=== PATIENT | male | born 1950 | race Caucasian/White ===

== ENCOUNTER 2017-09-10 21:23 | Observation (INO) | payer MEDICARE, BC ==
[2017-09-10 21:43] LABS: #Eosinphils 0.2 thou/uL (0.0-0.7); #Lymphocytes 1.4 thou/uL (1.20-3.40); #Monocytes 0.5 thou/uL (0.11-0.59); #Neutrophils 2.6 thou/uL (1.40-6.50); %Eosinophils 4.6 % (0.0-10.0); %Monocytes 10.5 % (0.0-10.0); %Neutrophils 54.9 % (42.0-75.0); Hemoglobin 15.4 g/dL (14.0-18.0); Mean Corpuscular HGB CONC 34.9 g/dL (32.0-36.0); Mean Corpuscular Hemoglobin 31.1 pg (27.0-31.0); Mean Platelet Volume 7.9 fL (7.4-10.4); Platelet Count 188 thou/uL (130-400); RBC Distribution Width 11.7 % (11.5-14.5); Red Blood Cell (RBC) Count 4.96 mill/uL (4.70-6.10); White Blood Cell (WBC) Count 4.7 thou/uL (4.8-10.8)
[2017-09-10 22:03] LABS: ALT (SGPT) 21 U/L (8-55); AST (SGOT) 36 U/L (5-34); Albumin 4.1 g/dL (3.4-4.8); Alkaline Phosphatase 64 U/L (40-150); Anion Gap 17 mmol/L (10-20); BUN (Urea Nitrogen) 17 mg/dL (8.4-25.7); Bilirubin, Total 0.6 mg/dL (0.2-1.2); CK (CPK) 252 U/L (30-200); Calc. Creatinine Clearance 0 mL/min (70-130); Carbon Dioxide 21 mmol/L (23-31); Chloride 107 mmol/L (98-107); Estimated GFR-MDRD 57; Globulin 2.5 g/dL (2.4-3.5); Glucose 86 mg/dL (80-115); Potassium 4.2 mmol/L (3.5-5.1); Protein, Total 6.6 g/dL (5.8-8.1); Sodium 141 mmol/L (136-145)
--- NOTE | 2017-09-10 22:10 | CT ---
CT BRAIN WITHOUT CONTRAST: 09/10/17 HISTORY: Level II trauma, syncope, fall. Hit head on table. FINDINGS: No evidence of acute infarct, hemorrhage, midline shift, or abnormal extra-axial fluid collections ar e seen. The ventricular size is appropriate and the basilar cisterns patent. The bony calvarium is in tact. The visualized paranasal sinuses and mastoid air cells are well aerated. Incidental note is made of soft tissue air in the right infratemporal fossa. IMPRESSION: 1. No CT evidence of acute intracranial process. 2. Soft tissue air in the right infratemporal fossa. Discussed over the telephone with ER physician, Dr. José Arreaga at 9:59 p.m. POS: [facility]
--- NOTE | 2017-09-10 22:19 | RAD ---
PORTABLE CHEST ONE VIEW 09/10/17 at 10 p.m. HISTORY: Injury, chest pain. FINDINGS: The heart size is normal. No lobar consolidation, pneumothorax or pleural effusions are seen. IMPRESSION: No radiographic evidence of acute cardiopulmonary process. POS: [facility]
[2017-09-10 22:37] LABS: CKMB 2.7 ng/mL (0-6.6); Troponin I Less than 0.010 ng/mL (< 0.028)
[2017-09-11] MEDS ORDERED: Acetaminophen 325 MG TAB PO PRN (00:10)
[2017-09-11] MEDS ORDERED: Sodium Chloride 0.9% 1,000 ML IV SCH (00:30)
[2017-09-11 00:52] VITALS: BMI 24.7
[2017-09-11 02:02] LABS: Troponin I Less than 0.010 ng/mL (< 0.028)
[2017-09-11 04:04] LABS: #Eosinphils 0.1 thou/uL (0.0-0.7); #Lymphocytes 1.2 thou/uL (1.20-3.40); #Monocytes 0.5 thou/uL (0.11-0.59); #Neutrophils 3.8 thou/uL (1.40-6.50); %Basophils 0.5 % (0.0-1.0); %Eosinophils 2.5 % (0.0-10.0); %Lymphocytes 21.2 % (21.0-51.0); %Monocytes 9.6 % (0.0-10.0); %Neutrophils 66.2 % (42.0-75.0); Mean Corpuscular Hemoglobin 31.3 pg (27.0-31.0); Mean Corpuscular Volume 89.3 fl (80.0-94.0); Mean Platelet Volume 8.1 fL (7.4-10.4); Platelet Count 165 thou/uL (130-400); RBC Distribution Width 11.6 % (11.5-14.5); Red Blood Cell (RBC) Count 4.47 mill/uL (4.70-6.10); White Blood Cell (WBC) Count 5.7 thou/uL (4.8-10.8)
--- NOTE | 2017-09-11 04:06 | HP ---
CHIEF COMPLAINT: Syncope. PRIMARY CARE PHYSICIAN: Out of town PCP. HISTORY OF PRESENT ILLNESS: The patient is a very pleasant 67-year-old male who has a history of sei zure, who presented to the hospital after a syncopal episode today. The patient stated that he went for a dinner with his friends. After dinner, he was standing and talking with friends when he felt v jumana dizzy; however, denied any diaphoresis or any palpitations and then had a syncopal episode. Talisha ent's family who is at the bedside stated that patient was out for about 2 or 3 seconds and then sean me more awake. He was aware of his surroundings at that time. Patient states that this is not like his typical seizures that he has had in the past. The patient states that he has had a history of tw o seizures in the past from unknown etiology. However, at that time, he has had grand mal seizures w ith postictal states. However, this syncope was, according to the family, unlikely to be a seizure, because it was not typically how his seizures present. The patient had a CT in the ER, which indicat ed no acute intracranial process. Patient recently was started on Namenda a few days ago for some me al loss. PAST MEDICAL HISTORY: History of seizures x2. PAST SURGICAL HISTORY: Denies. FAMILY HISTORY: Denies any significant family history. MEDICATIONS: He takes Keppra, unknown dose daily; gabapentin daily; and omeprazole. ALLERGIES: No known drug allergies. REVIEW OF SYSTEMS: The following complete review of systems was negative, unless otherwise mentioned in the HPI or below: Constitutional: Weight loss or gain, ability to conduct usual activities. Sk in: Rash, itching. Eyes: Double vision, pain. ENT/Mouth: Nose bleeding, neck stiffness, pain, te nderness. Cardiovascular: Palpitations, dyspnea on exertion, orthopnea. Respiratory: Shortness of breath, wheezing, cough, hemoptysis, fever or night sweats. Gastrointestinal: Poor appetite, abdom inal pain, heartburn, nausea, vomiting, constipation, or diarrhea. Genitourinary: Urgency, frequenc y, dysuria, nocturia. Musculoskeletal: Pain, swelling. Neurologic/Psychiatric: Anxiety, depressio n. Allergy/Immunologic: Skin rash, bleeding tendency. LABORATORY AND DIAGNOSTIC RESULTS: WBCs of 4.7, hemoglobin of 15.4, hematocrit 44.2, platelets of 18 8,000. Chemistry: Sodium of 141, potassium of 4.2, BUN of 17, creatinine of 1.25. AST mildly eleva carrie at 36. CK at 252. Troponins x2 negative. TSH ordered which was 7.12. CT of head indicates no intracranial abnormalities; however, there is some soft tissue air in the right infratemporal fossa. Chest x-ray indicated no radiographic evidence of acute cardiopulmonary process. ASSESSMENT AND PLAN: The patient is a very pleasant 67-year-old male who initially presented to the hospital after a syncopal episode. 1. Syncope, could be possibly cardiac related versus orthostatic versus reflex syncope or neuromedia carrie/reflex syncope. We will check a TSH, we will check orthostatic blood pressures, we will get echo cardiogram to rule out any structural abnormalities, we will also admit to telemetry. Troponins x3 a re negative. Unlikely to be seizure based on patient's prior seizure symptoms. 2. History of seizures. We will continue patient's Keppra. 3. Gastroesophageal reflux disease. We will continue patient's omeprazole. 4. Deep venous thrombosis prophylaxis. We will put patient on subcu heparin.
[2017-09-11 04:29] LABS: Anion Gap 12 mmol/L (10-20); BUN (Urea Nitrogen) 17 mg/dL (8.4-25.7); Calc. Creatinine Clearance 60 mL/min (70-130); Calcium 8.3 mg/dL (7.8-10.44); Carbon Dioxide 24 mmol/L (23-31); Chloride 109 mmol/L (98-107); Estimated GFR-MDRD 66; Glucose 121 mg/dL (80-115); Potassium 4.3 mmol/L (3.5-5.1); Sodium 141 mmol/L (136-145)
[2017-09-11 04:34] LABS: Troponin I Less than 0.010 ng/mL (< 0.028)
[2017-09-11] MEDS ORDERED: Heparin 5,000 UNITS/ML VIAL SC SCH (09:00)
[2017-09-11] MEDS ORDERED: levETIRAcetam 500 MG TAB PO SCH ×4 (09:00→21:00)
[2017-09-11 09:52] LABS: Bilirubin Negative (Negative); Blood, Urine Negative (Negative); Clarity CLEAR (Clear); Glucose, Urine (Dipstick) Negative (Negative); Leukocyte Negative (Negative); Nitrite Negative (Negative); Protein, Urine (Dipstick) Negative (Neg-Trace); Specific Gravity, Urine 1.011 (1.002-1.036); Urobilinogen 0.2 mg/dL (0.2-1.0)
[2017-09-11] MEDS ORDERED: Aspirin 81 mg Enteric Coated Tablet PO SCH (10:45)
[2017-09-11] MEDS ORDERED: Pantoprazole 40 MG GRANULES PACKET PO SCH (11:00)
[2017-09-11 11:40] VITALS: BP 133/91; TEMP 98
--- NOTE | 2017-09-11 12:22 | DIS ---
DATE OF ADMISSION: 09/10/2017, observation at 23:25. DATE OF DISCHARGE: 09/11/2017. PRIMARY CARE PHYSICIAN: Dr. Néstor López in [place]. PRIMARY NEUROLOGIST: Dr. Alfaro in [place]. DISCHARGE DIAGNOSES: 1. Syncope, suspect vasovagal. 2. History of seizures. 3. Gastroesophageal reflux disease without esophagitis. 4. Elevated TSH with normal free T4. 5. Collapsed with head injury, but no intracranial bleed. CONSULTATIONS: None. PROCEDURES: Echocardiogram done on 09/11/2017. Results are still currently pending. We will follow up on the results of these later today when they are available. HOSPITAL COURSE: Mr. Oswald is a 67-year-old male who was at one of our local country clubs at [facility]. He stood up and quickly passed out. He did fall striking his head on a table. He was out for about 3 seconds and was sent to the ER for further workup and evaluation. There, he had a CT scan of the brain that was negative. Chest x-ray was unremarkable and labs were f airly normal. The patient was told that it did not look like a seizure activity at that time, we were subsequently called for admission for overnight observation. The patient was seen and examined by Dr. Galvez and placed in observation. Labs were normal except f or a TSH of 7.12 and a CK of 252. Overnight, he did well. There were no arrhythmias noted on telemetry monitoring. Serial cardiac bio markers were negative with troponins that were undetectable. In response to his abnormal TSH 7.12, f ree T4 this morning was normal at 0.87. The remainder of his CBC and basic metabolic profile was com pletely normal. The patient had no further spells and had a normal orthostatics. He was stable for discharge with outpatient followup. PHYSICAL EXAMINATION: The patient was seen and examined on the day of discharge. Discharge plan and disposition was discussed with the patient and his face to face at the [facility]. DISCHARGE MEDICATIONS: 1. Aspirin 81 mg daily. 2. Gabapentin 100 mg p.o. at bedtime. 3. Keppra 1000 mg p.o. b.i.d. 4. Memantine ER 7 mg p.o. daily. 5. Protonix 40 mg daily. FOLLOWUP APPOINTMENTS: 1. Primary care physician, Dr. Blattman within a week. 2. Dr. Alfaro as scheduled. DISCHARGE ACTIVITY: As tolerated. DISCHARGE DIET: No restrictions. DISCHARGE CONDITION: Stable. DISPOSITION: Being discharged home via private vehicle back to [place] and his will be driving.
[2017-09-11] MEDS ORDERED: Gabapentin 100 MG CAP PO SCH (21:00)
[2017-09-12] MEDS ORDERED: MEMANTINE HCL 7 MG PO SCH (09:00)
[2017-09-12] MEDS ORDERED: Aspirin 81 mg Enteric Coated Tablet PO SCH (09:00)
--- NOTE | 2017-11-06 14:22 | EKG ---
Test Reason : Blood Pressure : / mmHG Vent. Rate : 074 BPM Atrial Rate : 074 BPM P-R Int : 152 ms QRS Dur : 074 ms QT Int : 396 ms P-R-T Axes : 034 003 028 degrees QTc Int : 439 ms Normal sinus rhythm Normal ECG Confirmed by ADRIÁN SALCEDO, CLARITA Garland ([id number]), non linear editor JENNI PERSAUD ([id number] on 11/06/2017 2:21:58 PM Referred By: Confirmed By:CLARITA SAMPSON MD
== END 2017-09-11 12:47 | disposition home or self-care (01) ==
LOC: ERS 21:23 → 2SW 23:25
PROVIDERS: ADMIT Internal Medicine; ATTEND Internal Medicine
DX: R55 Syncope and collapse (principal); S09.90XA Unspecified injury of head, initial encounter; R56.9 Unspecified convulsions; K21.9 Gastro-esophageal reflux disease without esophagitis; R94.6 Abnormal results of thyroid function studies; Z79.82 Long term (current) use of aspirin; Z79.899 Other long term (current) drug therapy
CPT/HCPCS: 70450; 71045; 80048; 81003; 82550; 82553; 84439; 84484 ×3; 85025; 93005; 93306; 96360; 96361; 99285; G0378; 36415; 80053; 84443; G0390; J1644